=== PATIENT | female | born 1950 | race Caucasian/White ===

== ENCOUNTER → 2024-05-31 11:16 | Outpatient (REF) | payer MEDICARE, OTHER, SELFPAY | LOC: HWRAD 11:16 | PROVIDERS: ATTENDING PHYSICIAN Internal Medicine Rheumatology; REFERRING PHYSICIAN Physical Medicine & Rehabilitation | DX: M81.0 Age-related osteoporosis without current pathological fracture (principal) | CPT/HCPCS: 77080 ==